=== PATIENT | female | born 1945 | race Caucasian/White ===

== ENCOUNTER 2020-11-03 12:02 | Outpatient (REF) | payer MEDICARE, SELFPAY ==
[2020-11-03 13:42] LABS: Blood Urea Nitrogen 18 mg/dL (9-16); Estimated Glomerular Filt Rate > 60
== END 2020-11-03 12:03 | disposition home or self-care (01) ==
LOC: HO.LAB 12:02
PROVIDERS: PCP Internal Medicine; Visit Provider Psychiatry & Neurology Neurology
DX: I63.9 Cerebral infarction, unspecified (principal)
CPT/HCPCS: 82565; 84520

== ENCOUNTER 2020-11-07 10:09 | Outpatient (REF) | payer MEDICARE, SELFPAY ==
--- NOTE | 2020-11-07 10:20 | CT_ITS ---
CT ANGIOGRAM NECK WITH CONTRAST CT ANGIOGRAM BRAIN WITH CONTRAST CLINICAL INFORMATION: Stroke. COMPARISON: None available. TECHNIQUE: Test bolus sequences followed by intravenous administration 70 mL of Omnipaque 350. Helical imaging was performed in the axial plane from the thoracic inlet to the skull vertex. Delayed postcontrast imaging of the head was also performed. The data was processed at the computer technologist workstation for generation of MIP sequences. Angled MIPs and volume rendered reformatted images were also generated at an offline 3D workstation under concurrent supervision. Stenoses are assessed in accordance with NASCET criteria unless otherwise indicated. This CT examination was performed using dose optimization techniques as appropriate, variously including the following: *Automated exposure control *Adjustment of mA and/or kV according to patient size (this includes techniques or standardized protocols for targeted exams where dose is matched to indication/reason for exam; i.e. 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 There is no intracranial hemorrhage, hydrocephalus, extra-axial surface collection, midline shift, or other herniation pattern. López to white matter differentiation is diffusely maintained without evidence of an evolved acute territorial infarct. The basilar cisterns are preserved. No significant soft tissue abnormality. No acute osseous abnormality. The paranasal sinuses and the mastoid air cells are well aerated.] CERVICAL SOFT TISSUES AND LUNG APICES: [There is multilevel cervical spondylosis. There are no significant soft tissue findings. Imaged upper lungs are clear. NECK CTA: The left common carotid artery arises from the brachiocephalic artery, an anatomic variant. Atherosclerotic calcification results in mild luminal narrowing of the brachiocephalic artery origin. The vertebral arteries are codominant. No significant ostial stenosis is visualized on either side. Both vertebral arteries are widely patent throughout their extracranial cervical course. Both common and internal carotid arteries are normal in course and caliber.] BRAIN CTA: [There is normal opacification of major intracranial arteries. No focal flow-limiting stenosis nor discrete proximal large artery occlusion. No aneurysm. Timing of the contrast bolus allows assessment of the major dural venous sinuses, which all opacify normally] CT/CT angio neck IMPRESSION: No acute intracranial findings. 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 No acute arterial occlusions and no significant arterial stenoses within the head or neck.
--- NOTE | 2020-11-07 10:20 | CT_ITS ---
CT ANGIOGRAM NECK WITH CONTRAST CT ANGIOGRAM BRAIN WITH CONTRAST CLINICAL INFORMATION: Stroke. COMPARISON: None available. TECHNIQUE: Test bolus sequences followed by intravenous administration 70 mL of Omnipaque 350. Helical imaging was performed in the axial plane from the thoracic inlet to the skull vertex. Delayed postcontrast imaging of the head was also performed. The data was processed at the microbiology technologist workstation for generation of MIP sequences. Angled MIPs and volume rendered reformatted images were also generated at an offline 3D workstation under concurrent supervision. Stenoses are assessed in accordance with NASCET criteria unless otherwise indicated. This CT examination was performed using dose optimization techniques as appropriate, variously including the following: *Automated exposure control *Adjustment of mA and/or kV according to patient size (this includes techniques or standardized protocols for targeted exams where dose is matched to indication/reason for exam; i.e. 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 There is no intracranial hemorrhage, hydrocephalus, extra-axial surface collection, midline shift, or other herniation pattern. López to white matter differentiation is diffusely maintained without evidence of an evolved acute territorial infarct. The basilar cisterns are preserved. No significant soft tissue abnormality. No acute osseous abnormality. The paranasal sinuses and the mastoid air cells are well aerated.] CERVICAL SOFT TISSUES AND LUNG APICES: [There is multilevel cervical spondylosis. There are no significant soft tissue findings. Imaged upper lungs are clear. NECK CTA: The left common carotid artery arises from the brachiocephalic artery, an anatomic variant. Atherosclerotic calcification results in mild luminal narrowing of the brachiocephalic artery origin. The vertebral arteries are codominant. No significant ostial stenosis is visualized on either side. Both vertebral arteries are widely patent throughout their extracranial cervical course. Both common and internal carotid arteries are normal in course and caliber.] BRAIN CTA: [There is normal opacification of major intracranial arteries. No focal flow-limiting stenosis nor discrete proximal large artery occlusion. No aneurysm. Timing of the contrast bolus allows assessment of the major dural venous sinuses, which all opacify normally] CT/CT angio head IMPRESSION: No acute intracranial findings. 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 No acute arterial occlusions and no significant arterial stenoses within the head or neck.
[2020-11-07] MEDS: iohexoL 350 MG/ML 100 ML INFUS..BTL 70 ML IV (11:18)
== END 2020-11-07 10:10 | disposition home or self-care (01) ==
LOC: HO.CT 10:09
PROVIDERS: PCP Internal Medicine; Visit Provider Psychiatry & Neurology Neurology
DX: I63.9 Cerebral infarction, unspecified (principal)
CPT/HCPCS: 70496; 70498; Q9967

== ENCOUNTER 2025-02-17 12:07 | Inpatient (IN) | payer MEDICARE, SELFPAY ==
--- NOTE | ~2025-02-17 | CT_ITS ---
EXAMINATION: CT ABDOMEN PELVIS WITH IV CONTRAST HISTORY: constipation. Small bowel obstruction? COMPARISON: There are no prior studies for comparison. TECHNIQUE: CT scan of the abdomen and pelvis was performed following administration of 85 mL Omnipaque 350 using standard departmental protocol. Coronal and sagittal reformatted images were generated and reviewed. Oral contrast material was not administered at the request of the referring physician. This CT exam was performed with one or more of the following dose reduction techniques: automated exposure control, adjustment of the mA and/or kV according to patient size, use of iterative reconstruction technique. DLP: 364 mGy-cm FINDINGS: LOWER CHEST: There is linear scarring at both lung bases. There is no pleural effusion. CARDIOVASCULATURE: The heart is normal in size. There is no pericardial effusion. LIVER: The liver is normal in size and contour. No liver mass is identified. The hepatic and portal veins are patent. GALLBLADDER / BILE DUCTS: The gallbladder is unremarkable. There is no intra or extrahepatic biliary ductal dilatation. SPLEEN: The spleen is normal in size. No focal splenic lesion is identified. PANCREAS: The pancreas is unremarkable in appearance. ADRENAL GLANDS: Within normal limits. KIDNEYS/RETROPERITONEUM: No renal calculi are identified. There is no hydronephrosis. There are subcentimeter hypodensities in the kidneys which likely represent cysts, but are too small to accurately characterize. LYMPH NODES: No abdominal or pelvic lymphadenopathy. VASCULATURE: The abdominal aorta demonstrates atherosclerotic calcification, but is normal in caliber. MESENTERY/PERITONEUM: No free fluid. No masses. There is no free intraperitoneal gas. STOMACH: There is a small hiatal hernia. The remainder of the stomach is collapsed. SMALL BOWEL: The small bowel is normal in caliber. COLON: There is a very large amount of stool in the rectosigmoid colon. Fluid is seen in the ascending, transverse, and descending colon. There is diverticulosis of the sigmoid colon without evidence of diverticulitis. APPENDIX: Normal. URINARY BLADDER/PELVIC ORGANS: The urinary bladder is largely obscured by streak artifact from bilateral total hip arthroplasties. The uterus is partially obscured. The visualized portion is unremarkable in appearance. BONES / SOFT TISSUES: There is severe degenerative disc disease of the spine. CT/CT abdomen pelvis w IV con IMPRESSION: Very large amount of stool in the rectosigmoid colon with fluid in the remaining colon suggestive of an element of colonic obstruction. There is no evidence of small bowel obstruction. Electronically signed by: Charbel Agee MD 02/17/2025 03:17 PM EDT
--- NOTE | ~2025-02-17 | XR_ITS ---
EXAMINATION: XR ABDOMEN KUB CLINICAL INDICATION: rule out colonic obstruction with gastrogfn enema COMPARISON: February 17, 2025. TECHNIQUE: AP view of the abdomen. FINDINGS: Gas throughout the intestine. No air-fluid levels. No intestinal dilatation. There are shadow projects below the rib cage. Bilateral hip arthroplasty prosthesis no fully included. Levoconvex rotoscoliosis and multilevel thoracolumbar spondylosis. Spina bifida occulta S1. XR/XR KUB IMPRESSION: No intestinal obstruction pattern. Electronically signed by: Jared Cosme MD 02/18/2025 09:41 AM EDT
--- NOTE | ~2025-02-17 | XR_ITS ---
EXAMINATION: XR ABDOMEN 1 VIEW (KUB) HISTORY: constipation. Fecal impaction COMPARISON: There are no prior studies for comparison. FINDINGS: Two supine views of the abdomen are submitted. The bowel gas pattern is unremarkable, without evidence of mechanical obstruction. There is a moderate to large amount of stool throughout the colon. There are multiple phleboliths in the pelvis. There are no abnormal soft tissue masses. The patient is status post bilateral total hip arthroplasty. XR/XR KUB IMPRESSION: Moderate to large amount of stool throughout the colon. Electronically signed by: Charbel Agee MD 02/17/2025 01:22 PM EDT
[2025-02-17 12:11] VITALS: BP 141/58; PULSE 64; RESP 19; TEMP 36.3; O2SAT 97; BMI 26.4
--- NOTE | 2025-02-17 12:22 | ED.GENADULT ---
HPI - General Adult General Chief complaint: General Medical Stated complaint: constipation, chronic back pain Time Seen by Provider: 02/17/25 12:14 Source: patient Mode of arrival: ambulatory Limitations: no limitations History of Present Illness ED Provider: Santos Degroot HPI narrative: 79 yold female with no signifiicant pmh and pmh of back surgery presents to the ED for impaction. patient states this morning not able to defecate or urinate this morning. patient states last bowel movement was yesterday morning. Patient states rectum pressure. patient is on oxycodone daily for chronic back pain Related Data Home Medications ?Medication ?Instructions ?Recorded ?Confirmed oxycodone 10 mg tablet 10 mg PO BID 02/17/25 02/17/25 oxycodone 10 mg tablet 10 mg PO DAILY PRN Pain 02/17/25 02/17/25 trazodone 100 mg tablet 200 mg PO BEDTIME 02/17/25 02/17/25 Allergies Allergy/AdvReac Type Severity Reaction Status Date / Time No Known Allergies Allergy Verified 02/17/25 12:15 Review of Systems Review of Systems: rectal pain, constipation Yes all other systems are reviewed and are negative [facility] Social History Social History Smoked in Last 30 Days: No Use of substances other than those prescribed or required for medical reasons: No Advance Directives: No Advance Directives Information Provided: Yes Physical Exam ED Vital Signs: Vital Signs - 24 hr 02/17/25 12:11 02/17/25 15:47 02/17/25 18:38 Temperature 97.3 F 97.9 F 97.8 F Pulse Rate 64 72 72 Respiratory Rate 19 16 16 Blood Pressure 141/58 H 108/76 118/52 L Pulse Oximetry 97 96 95 Oxygen Delivery Method Room Air Room Air Room Air 02/17/25 20:15 02/17/25 22:19 Temperature 98.3 F 98.1 F Pulse Rate 67 74 Respiratory Rate 16 16 Blood Pressure 111/52 L 119/61 Pulse Oximetry 94 95 Oxygen Delivery Method Room Air Room Air BMI result Body Mass Index 26.4 Const General: cooperative, healthy appearing, comfortable, no acute distress, well developed, alert, awake and Physically active Orientation/consciousness: patient oriented x3 HENMT Head: Yes normal to inspection, Yes No palpable skull fracture present, Yes normocephalic and Yes atraumatic Eyes General: appearance normal, both eyes and all related structures Neck Neck: Yes normal visual inspection, Yes full ROM, Yes no lymphadenopathy, Yes no meningeal signs, Yes trachea midline, Yes supple, No anterior neck swelling and No tender Chest Chest palpation & inspection: normal inspection of the chest and normal palpation of entire chest wall Resp Effort & Inspection: normal respiratory effort and able to speak in complete sentences Auscultation: clear to auscultation bilaterally Cardio Jugular venous distension: no JVD Heart sounds: S1 normal heart sound present and S2 normal heart sound present GI Other: Rectal exam: positive for large amount of hard impacted stool at rectum Inspection: Yes normal to inspection Palpation (GI): Soft to palpation, not firm, nontender, no guarding and not rigid General: Yes no CVA tenderness Back/Spine/Pelvis Back: no CVA tenderness and No back tenderness Skin General skin exam: no rashes or lesions noted, elasticity normal and turgor normal Neuro General: patient oriented x3, gait normal, tone normal, moves all extremities, Normal light touch and pain sensation, no meningeal signs, no focal motor deficits, CN's II-XI intact bilaterally and normal sensation to monofilament Extrem General: Yes normal to inspection, Yes full ROM and Yes capillary refill normal Psych Appearance: grossly normal, well kempt and not disheveled Course Reevaluation(s) Reevaluation #1: the patient was yet to be admitted to the hospital, there appears to be miscommunication between the prior hospitalist, and the provider caring for this patient is; Santos Degroot, and the hospitalist that he had reached out to earlier was Dr. Power. Regardless, I reached out to Dr. Mcduffie, he will accept the patient, it was documented in Mr. Degroot's chart that both GI and surgery were consulted, both parties are aware; Dr. Goldstein and Dr. Reeves. We are filing a sec 12. Medications Administered Discontinued Medications Generic Name Dose Route Start Last Admin Trade Name Freq PRN Reason Stop Dose Admin Acetaminophen 975 mg 02/17/25 21:49 02/17/25 22:15 Acetaminophen 325 Mg Tablet PO 02/17/25 21:50 975 mg ONCE ONE Administration Iohexol 100 ml 02/17/25 14:31 02/17/25 14:31 Iohexol 350 Mg/Ml 100 Ml Infus..Btl IV 02/17/25 14:32 85 ml ONCE ONE Administration Ketorolac Tromethamine 30 mg 02/17/25 13:07 02/17/25 13:28 Ketorolac Tromethamine 30 Mg/Ml Vial IVPUSH 02/17/25 13:08 30 mg ONCE ONE Administration Mineral Oil 133 ml 02/17/25 12:39 02/17/25 14:11 Mineral Oil Enema 133 Ml Enema MO 02/17/25 12:40 133 ml ONCE ONE Administration Medical Decision Making Medical Decision Making MDM Narrative: 79 yold female with seem like physical exam fecal impaction. Large amount of stool hard in the rectum. Patient is in discomfort. Tried to disimpact patient has small number of poop came out but patient not able to tolerate. Patient can not do more than 1 finger. Stool is hard and large Fleet enema placed. Patient would like a break we will go back to the room to continue disimpaction with mineral oil enema. Bladder scan is 300 due to stool fecal impactoin. 1:52pm: KUB shows moderate to large amount of stool throughout the abdomen. Bladder scan now 700 most likely due to constipation we will do strict calf to relieve patient. 2:20pm: 2nd attempt at fecal disimpaction. Patient not able to tolerate to fingers. Patient not able to tolerate much of any finger on even 1. Stool is soft patient thinks she pushed a little bit out. Mineral oil Fleet given. Due to age we will do CT scan ordered to make sure there is no small bowel obstructoin. 4:29pm: CT scan shows large rectal sigmoid colon obstruction with colonic obstruction with fluid buildup. Once again patient was not able to tolerate fecal impaction and also enema which was attempted twice. Case was discussed with Dr. Goldstein recommend patient be admitted to Medicine with surgery and GI consult. 5:00pm: Patient now stating she is suicidal and should take her own life. Patient seems emotionally labile. Due to this care team consult placed. Hospitalist made aware. Dr. Reeves was made aware of patient's colonic obstruction. Differential Diagnosis Differential Diagnoses: The differential diagnosis associated with the presentation includes (SB0) Admission/Observation Consideration of admission/observation: Escalation of care including admission/observation considered Consult Healthcare Provider Management of the patient was discussed with: Hospitalist (Dr. Power) and Finance Associate (Dr. Goldstein of Surgery and Dr. Reeves of GI) Lab Data 02/17/25 13:57 02/17/25 13:57 Labs: Lab Results 02/17/25 02/17/25 Range/Units 13:57 14:07 WBC 11.6 H (4.8-10.8) X10*3/uL RBC 4.26 (4.20-5.50) X10*6/uL Hgb 12.6 (12.0-16.0) g/dl Hct 38.3 (37.0-47.0) % MCV 89.9 (80.0-98.0) fL MCH 29.6 (27.0-33.0) pg MCHC 32.9 (31.0-35.0) g/dl RDW 14.2 (11.0-16.0) % Plt Count 158 L (160-400) X10*3/uL MPV 11.3 (9.4-12.3) fL Immature Gran % (Auto) 0.3 (0.0-0.4) % Neut % (Auto) 83.6 H (45-73) % Lymph % (Auto) 10.8 L (20-40) % Grand % (Auto) 4.9 (2-11) % Eos % (Auto) 0.1 (0-4) % Baso % (Auto) 0.3 (0-2) % Lymph # (Auto) 1.3 (1.2-4.9) X10*3/uL [place] # (Auto) 0.6 (0.1-1.2) X10*3/uL Eos # (Auto) 0.0 (0.0-0.4) X10*3/uL Baso # (Auto) 0.0 (0.0-0.2) X10*3/uL Abs Immat Gran (auto) 0.04 H (0.00-0.03) X10*3/uL Absolute Neuts (auto) 9.7 H (2.0-8.3) x10*3/uL Absolute Nucleated RBC 0.000 (0.0-0.012) X10*3/uL Nucleated RBC % (auto) 0.0 (0.0-0.2) /100WBC Sodium 140 (135-145) mmol/L Potassium 3.8 (3.3-5.1) mmol/L Chloride 110 H (96-108) mmol/L Carbon Dioxide 24 (22-29) mmol/L Anion Gap 10 L (12-20) BUN 13 (9-16) mg/dL Creatinine 0.79 (0.5-1.4) mg/dL Estim Creat Clear Calc 49.2 Estimated GFR > 60 Random Glucose 106 (60-115) mg/dL Calcium 9.5 (8.4-10.2) mg/dL Total Bilirubin 0.8 (0.0-1.0) mg/dL AST 24 (5-31) U/L ALT 7 (0-31) U/L Alkaline Phosphatase 102 (39-117) U/L Total Protein 6.1 L (6.5-8.0) g/dL Albumin 3.9 (3.5-5.0) g/dL Urine Color Yellow Urine Appearance Clear Urine pH 7.5 (5.0-9.0) Ur Specific [place] <= 1.005 (1.005-1.025) Urine Protein Negative (Neg-Trace) mg/dL Urine Glucose (UA) Negative (Negative) mg/dL Urine Ketones Trace (Negative) mg/dL Urine Blood Negative (Negative) Urine Nitrite Negative (Negative) Ur Leukocyte Esterase Negative (Negative) Discharge Plan Discharge Clinical Impression: Colonic obstruction, Suicidal ideation Patient Disposition: Admitted As Inpatient
[2025-02-17] MEDS: Ketorolac Tromethamine 30 MG/ML VIAL IVPUSH (13:28)
[2025-02-17 14:02] LABS: MANUAL DIFF FLAG NO
[2025-02-17 14:04] LABS: Basophils Percent Auto 0.3 % (0-2); Eosinophils Percent Auto 0.1 % (0-4); Hematocrit 38.3 % (37.0-47.0); Hemoglobin 12.6 g/dl (12.0-16.0); Imm Gran Abs Auto 0.04 X10*3/uL (0.00-0.03); Imm Gran Pct Auto 0.3 % (0.0-0.4); Lymphocytes Absolute Auto 1.3 X10*3/uL (1.2-4.9); Lymphocytes Percent Auto 10.8 % (20-40); Mean Corpuscular HGB Conc 32.9 g/dl (31.0-35.0); Mean Corpuscular Hemoglobin 29.6 pg (27.0-33.0); Mean Corpuscular Volume 89.9 fL (80.0-98.0); Mean Platelet Volume 11.3 fL (9.4-12.3); Monocytes Absolute Auto 0.6 X10*3/uL (0.1-1.2); Monocytes Percent Auto 4.9 % (2-11); Neutrophils Absolute Auto 9.7 x10*3/uL (2.0-8.3); Neutrophils Percent Auto 83.6 % (45-73); Platelet Count 158 X10*3/uL (160-400); Red Blood Count 4.26 X10*6/uL (4.20-5.50); Red Cell Distribution Width 14.2 % (11.0-16.0); White Blood Count 11.6 X10*3/uL (4.8-10.8)
[2025-02-17] MEDS: Mineral OiL enema 133 ML ENEMA PR (14:11)
[2025-02-17 14:17] LABS: Alanine Aminotransferase 7 U/L (0-31); Albumin Level 3.9 g/dL (3.5-5.0); Alkaline Phosphatase 102 U/L (39-117); Anion Gap 10 (12-20); Aspartate Amino Transferase 24 U/L (5-31); Bilirubin Total 0.8 mg/dL (0.0-1.0); Blood Urea Nitrogen 13 mg/dL (9-16); Calcium 9.5 mg/dL (8.4-10.2); Carbon Dioxide 24 mmol/L (22-29); Chloride 110 mmol/L (96-108); Creatinine Clr Calc Pharmacy 49.2; Estimated Glomerular Filt Rate > 60; Glucose Random 106 mg/dL (60-115); Potassium 3.8 mmol/L (3.3-5.1); Sodium 140 mmol/L (135-145); Total Protein 6.1 g/dL (6.5-8.0)
[2025-02-17 14:26] LABS: Appearance Urine Clear; Color Urine Yellow; Glucose Urine UA Negative (Negative); Leukocyte Esterase Urine Negative (Negative); Nitrite Urine Negative (Negative); PH 7.5 (5.0-9.0); Specific Gravity - Urine <= 1.005 (1.005-1.025); Urine Blood Negative (Negative); Urine Ketones Trace mg/dL (Negative); Urine Protein Negative (Neg-Trace)
[2025-02-17] MEDS: iohexoL 350 MG/ML 100 ML INFUS..BTL IV (14:31)
[2025-02-17 15:47] VITALS: BP 108/76; PULSE 72; RESP 16; TEMP 36.6; O2SAT 96
--- NOTE | 2025-02-17 17:19 | PC.NURSE ---
Pt made statements to tech about trying to kill herself in September and wishing she did it. Pt very emotional, +emotional liable. Crying and upset then having periods of laughing. This RN spoke to pt, pt denies SI or HI at this time, but does request to talk to someone about her mental health due to it not being well since September and getting worse. Pt reporting she has been more confused, not feeling herself. At this time, pt changed over into safety clothing, 1:1 sitter at bedside, provider aware and care team order placed.
--- NOTE | 2025-02-17 17:27 | PC.NURSE ---
Late entry: Pt presented from home via EMS for constipation X24 hours and unable to urinate since yesterday as well. Pt has hx of back issues, takes oxy 10mg TID for pain for years, reports no issues with constipation in past. Reporting pain and pressure to rectum area. Pt was disimpacted by provider, enemas X2 given with some positive effect. Pt bladder scanned and found to be >700 mL, straight cath with approx 700 mL of output. Pt on purewick now. Alert and oriented, breathing even and unlabored. IV in left AC 20G
--- NOTE | 2025-02-17 17:31 | PC.NURSE ---
Pt is poss admit and surgicial consult for poss colonic obstruction. NPO at this time
--- NOTE | 2025-02-17 18:30 | PC.NURSE ---
Pt reporting she is unable to urinate again. Bladder scan shows >700 mL again. Provider gave order to do another straight cath at this time
[2025-02-17 18:38] VITALS: BP 118/52; PULSE 72; RESP 16; TEMP 36.6; O2SAT 95
--- NOTE | 2025-02-17 18:38 | PC.NURSE ---
Second straight cath urine output 700 mL.
--- NOTE | 2025-02-17 19:01 | PHA.MEDREC ---
Addendum entered by Martin Patel [facility] 02/17/25 19:29: MED REC CHECKED BY [facility] Original Note: Pharmacy Consult ? Medication Reconciliation Pharmacy has completed the medication reconciliation. Spoke to patient to confirm med list. Patient states she is not taking Gabapentin 100 mg, Ondansertron 4 mg, and Valacyclovir 2,000mg. Patient states she takes Oxyconode 10 mg Bid and 10 mg prn.
[2025-02-17 20:15] VITALS: BP 111/52; PULSE 67; RESP 16; TEMP 36.8; O2SAT 94
--- NOTE | 2025-02-17 20:26 | PC.NURSE ---
this rn assumed care of pt @ 1900 charge operator and covering cielo aware of unknown pending disposition. pt continues to await care team consult pt denies new needs at this time 1:[address]
[2025-02-17] MEDS: Acetaminophen 325 MG TABLET 975 MG PO (22:15)
[2025-02-17 22:19] VITALS: BP 119/61; PULSE 74; RESP 16; TEMP 36.7; O2SAT 95
--- NOTE | 2025-02-17 23:15 | MHC.EDTECH ---
this tech assumed care of this pt @ 3126 from Edd (rail manager)
--- NOTE | 2025-02-17 23:18 | P.HPHOSP_ITS ---
History of Present Illness Date of Service: 02/17/25 Chief Complaint: Constipation 79-year-old female with a past medical history of chronic back pain status post surgery presented to the hospital today with a chief complaint of abdominal discomfort/constipation. Patient reports that she is having difficulty in having a bowel movement since morning. Has been having mild lower abdominal discomfort. Denies any nausea or vomiting. Last bowel movement was about a day ago. Denies any chest pain or palpitations. Denies any urinary frequency urgency or dysuria. Review of all other systems is negative except mentioned above ER course: Per ER team, patient abdominal exam was benign; CT abdomen pelvis showed severe constipation with colonic obstruction. ER patient tried manual disimpaction couple times but no success. Patient was given enema 2 times. Discussed with General surgery and Gastroenterology who suggested admission to the medicine service and will be evaluated in the morning. [facility] Social History Smoked in Last 30 Days: No Use of substances other than those prescribed or required for medical reasons: No Advance Directives: No Advance Directives Information Provided: Yes Meds Allergies Allergy/AdvReac Type Severity Reaction Status Date / Time No Known Allergies Allergy Verified 02/17/25 12:15 Active Medications: Current Medications Acetaminophen (Acetaminophen 325 Mg Tablet) 650 mg PO Q6H PRN PRN Reason: Pain, Mild 1-3,fever,headache Calcium Carbonate (Calcium Carbonate 750 Mg Tab.Chew) 750 mg PO Q4H PRN PRN Reason: Heartburn Docusate Sodium (Docusate Sodium 100 Mg Capsule) 100 mg PO BID [facility] Heparin Sodium (Porcine) (Heparin Sodium,Porcine 5,000 Unit/Ml Vial) 5,000 unit SUBCUT Q8H [facility] Dextrose/Sodium Chloride (D51/2ns) 1,000 mls @ 100 mls/hr IVCONT .Q10H [place] Magnesium Hydroxide (Milk Of Magnesia 30 Ml Oral.Susp) 30 ml PO DAILY PRN PRN Reason: Constipation Melatonin (Melatonin 3 Mg Tablet) 6 mg PO BEDTIME PRN PRN Reason: Insomnia Polyethylene Glycol (Polyethylene Glycol 3350 17 Gm Powd.Pack) 17 gm PO DAILY PRN PRN Reason: Constipation Senna (Sennosides 8.6 Mg Tablet) 17.2 mg PO BEDTIME [facility] Sodium Chloride (0.9 % Sodium Chloride Flush 3 Ml Syringe) 3 ml IVFLUSH QSHIFT [facility] Home Medications ?Medication ?Instructions ?Recorded ?Confirmed ?Last Taken ?Type oxycodone 10 mg tablet 10 mg PO BID 02/17/25 02/17/25 02/16/25 History oxycodone 10 mg tablet 10 mg PO DAILY PRN Pain 02/17/25 02/17/25 Unknown History trazodone 100 mg tablet 200 mg PO BEDTIME 02/17/25 02/17/25 02/16/25 History Physical Exam 2 Vital Signs and Narrative: Vital Signs: Last Vital Signs Temp 98.1 F 02/17/25 22:19 Pulse 74 02/17/25 22:19 Resp 16 02/17/25 22:19 BP 119/61 02/17/25 22:19 Pulse Ox 95 02/17/25 22:19 O2 Del Method Room Air 02/17/25 22:19 BMI result Body Mass Index 26.4 Gen: Appears be in no acute distress HEENT: NCAT, Moist mucosa. Pulmonary: Vesicular breath sounds, fair air entry CVS: Normal S1-S2 Abdomen: BS+, Soft, Nontender Extremities: Warm well perfused Neuro: Alert and awake. Results Labs 02/17/25 13:57 02/17/25 13:57 Labs: Laboratory Results - last 24 hr 02/17/25 02/17/25 13:57 14:07 MCV 89.9 MCH 29.6 MCHC 32.9 RDW 14.2 Plt Count 158 L MPV 11.3 Immature Gran % (Auto) 0.3 Neut % (Auto) 83.6 H Lymph % (Auto) 10.8 L [place] % (Auto) 4.9 Eos % (Auto) 0.1 Baso % (Auto) 0.3 Lymph # (Auto) 1.3 [place] # (Auto) 0.6 Eos # (Auto) 0.0 Baso # (Auto) 0.0 Abs Immat Gran (auto) 0.04 H Absolute Neuts (auto) 9.7 H Absolute Nucleated RBC 0.000 Nucleated RBC % (auto) 0.0 Anion Gap 10 L Estim Creat Clear Calc 49.2 Estimated GFR > 60 Random Glucose 106 Calcium 9.5 Total Bilirubin 0.8 AST 24 ALT 7 Alkaline Phosphatase 102 Total Protein 6.1 L Albumin 3.9 Urine Color Yellow Urine Appearance Clear Urine pH 7.5 Ur Specific [place] <= 1.005 Urine Protein Negative Urine Glucose (UA) Negative Urine Ketones Trace Urine Blood Negative Urine Nitrite Negative Ur Leukocyte Esterase Negative Imaging Radiologist's Impressions: Impressions KUB X-Ray 02/17/25 13:04 IMPRESSION: Moderate to large amount of stool throughout the colon. Electronically signed by: Charbel Agee MD 02/17/2025 01:22 PM EDT RP Abdomen/Pelvis CT 02/17/25 14:30 IMPRESSION: Very large amount of stool in the rectosigmoid colon with fluid in the remaining colon suggestive of an element of colonic obstruction. There is no evidence of small bowel obstruction. Electronically signed by: Charbel Agee MD 02/17/2025 03:17 PM EDT RP Assessment and Plan (1) Constipation: Qualifiers: Constipation type: unspecified constipation type Qualified Code(s): K 59.00 - Constipation, unspecified Status: Acute Plan 79-year-old female with a past medical history of chronic back pain status post surgery presented to the hospital today with a chief complaint of abdominal discomfort/constipation. Constipation: Colonic obstruction: CT abdomen pelvis showed severe constipation with colonic obstruction. Failed manual disimpaction attempts x2 in the ER Given enema x2 in the ER Bowel regimen Gentle IV fluids Gastroenterology and general surgery was notified Supportive care Advanced diet as tolerated Suicidal ideation: While in the ER patient expressed suicide ideation. Patient was placed on section 12 One 2 on observation Psychiatric consult DVT prophylaxis: SubQ heparin Code status: Full code Quality Stroke Does the patient have a stroke diagnosis?: No VTE Prior VTE?: No VTE Risk Level:: Medical - moderate - high VTE Device Contraindication: N/A - Device Ordered VTE Drug Contraindication: N/A - Med Ordered
--- NOTE | 2025-02-17 23:30 | PC.NURSE ---
late entry-pt expressed multiple times frustration, confusion, and dissatisfaction with management of admission. charge master specialist and jeromy cielo to bedside to reiterate and explain plan of care. pt required frequent explanation for current disposition and plan of care
[2025-02-18] MEDS: Dextrose 5 % and 0.45 % NaCl 1,000 ML 100 ML IVCONT ×2 (00:03→11:04)
--- NOTE | 2025-02-18 00:07 | PC.NURSE ---
pt refused herparin injection pt educated on importance of medication
--- NOTE | 2025-02-18 00:08 | PC.NURSE ---
ivf infusing unable to scan bar code ivf confirmed medication with additional rn
[2025-02-18 01:26] VITALS: BP 111/68; PULSE 65; RESP 15; TEMP 36.6; O2SAT 95
[2025-02-18] MEDS: traZODone HCL 100 MG TABLET 200 MG PO ×2 (02:44→20:06)
--- NOTE | 2025-02-18 03:33 | PC.NURSE ---
per cupola charger pt belongings need to be placed in [facility] due to pt SI statements. belongings list completed belongings placed on shelf 1 contains two bags and 1 cane note made in [facility] log book
[2025-02-18 06:26] VITALS: BP 113/54; PULSE 71; RESP 16; TEMP 36.6; O2SAT 97
--- NOTE | 2025-02-18 06:43 | MHC.EDTECH ---
at this time this tech assisted the pt off of the commode, pt had a small sized liquid stool, pt stated she urinated prior to having BM. bladder scanned post BM and pt still had a remaining 426 mL left after using commode, RN notified
--- NOTE | 2025-02-18 07:05 | PC.NURSE ---
bladder scan performed by physical medicine specialist 620ml on scan. pt able to use bedside commode bladder scan repeated 426ml remained in bladder at this time. dr easton made aware per md plan of care is for straight cath. oncoming sangeeta huffman made aware tiger message forwarded to oncrayna rutherford
[2025-02-18] MEDS: Docusate Sodium 100 MG CAPSULE PO ×2 (07:18→20:06)
[2025-02-18] MEDS: Heparin Sodium,Porcine 5,000 UNIT/ML VIAL 5000 UNIT SUBCUT ×3 (07:18→22:56)
--- NOTE | 2025-02-18 07:34 | PM.GICN ---
History of Present Illness Data of Consult Service Date: 02/18/25 Requesting physician: Edis Mcduffie Primary Care Provider: Aniceto Umana MD [facility] Reason for consult: colonic obstruction 79 YF with chronic back pain status post surgery seen at [facility] ED on 02/17/25 with abdominal discomfort/constipation. Patient reports that she is having difficulty in having a bowel movement since morning. Has been having mild lower abdominal discomfort. Pt states she lost track of her bowel movements - last BM was a week ago (notes she is having trouble with her memory) She reports she eats fruits and vegetables and drinks 2-3 bottles of water daily. Takes OTC laxatives/stool softeners prn (unable to recall nam of medication) Denies any nausea or vomiting, chest pain or palpitations. Denies any urinary frequency urgency or dysuria. Pt reports she has been passing bits and pieces of stool overnight after getting the enemas Also had urinary retention and reports 400 cc of urine was removed by cathetrization and she feels a little more comfortable this am. Pt reports she never had a colonscopy in the past (a little unsure) Patient denies smoking and takes alcohol very rarely. She is retired and lives with her and her dog. Pt reports she was born at 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 Patient was given fleet enemas x 2. Pt was discussed with General surgery who advised admission to Medicine service. Suicidal ideation: While in the ER patient expressed suicide ideation. Patient was placed on section 12 with a sitter 02/17/[address] SCAN SHOWED: Very large amount of stool in the rectosigmoid colon with fluid in the remaining colon suggestive of an element of colonic obstruction. There is no evidence of small bowel obstruction. Review of Systems Review of Systems: rectal pain, constipation Yes all other systems are reviewed and are negative Neurologic: Reports confusion Psychiatric: Psychiatric: Reports confusion PMFSH Social History Social History Household Members: Spouse Housing: Other Housing Other:: mobile home Do you presently have visiting nurse or other home services: No Patient Tobacco Use Status: Never used Tobacco service: No Meds Allergies Allergy/AdvReac Type Severity Reaction Status Date / Time No Known Allergies Allergy Verified 02/17/25 12:15 Active Medications: Current Medications Acetaminophen (Acetaminophen 325 Mg Tablet) 650 mg PO Q6H PRN PRN Reason: Pain, Mild 1-3,fever,headache Calcium Carbonate (Calcium Carbonate 750 Mg Tab.Chew) 750 mg PO Q4H PRN PRN Reason: Heartburn Docusate Sodium (Docusate Sodium 100 Mg Capsule) 100 mg PO BID [facility] Last Admin: 02/18/25 07:18 Dose: 100 mg Heparin Sodium (Porcine) (Heparin Sodium,Porcine 5,000 Unit/Ml Vial) 5,000 unit SUBCUT Q8H [facility] Last Admin: 02/18/25 07:18 Dose: 5,000 unit Dextrose/Sodium Chloride (D51/2ns) 1,000 mls @ 100 mls/hr IVCONT .Q10H [facility] Last Admin: 02/18/25 00:03 Dose: 100 mls/hr Magnesium Hydroxide (Milk Of Magnesia 30 Ml Oral.Susp) 30 ml PO DAILY PRN PRN Reason: Constipation Melatonin (Melatonin 3 Mg Tablet) 6 mg PO BEDTIME PRN PRN Reason: Insomnia Polyethylene Glycol (Polyethylene Glycol 3350 17 Gm Powd.Pack) 17 gm PO DAILY PRN PRN Reason: Constipation Senna (Sennosides 8.6 Mg Tablet) 17.2 mg PO BEDTIME [facility] Sodium Chloride (0.9 % Sodium Chloride Flush 3 Ml Syringe) 3 ml IVFLUSH QSHIFT [facility] Last Admin: 02/18/25 07:19 Dose: Not Given Trazodone HCl (Trazodone Hcl 100 Mg Tablet) 200 mg PO BEDTIME [facility] Last Admin: 02/18/25 02:44 Dose: 200 mg Home Medications ?Medication ?Instructions ?Recorded ?Confirmed ?Last Taken ?Type oxycodone 10 mg tablet 10 mg PO BID 02/17/25 02/17/25 02/16/25 History oxycodone 10 mg tablet 10 mg PO DAILY PRN Pain 02/17/25 02/17/25 Unknown History trazodone 100 mg tablet 200 mg PO BEDTIME 02/17/25 02/17/25 02/16/25 History Physical Exam Vital Signs: Vital Signs: Last Vital Signs Temp 97.9 F 02/18/25 06:26 Pulse 71 02/18/25 06:26 Resp 16 02/18/25 06:26 BP 113/54 L 02/18/25 06:26 Pulse Ox 97 02/18/25 06:26 O2 Del Method Room Air 02/18/25 06:26 BMI result Body Mass Index 26.4 Const: General: no acute distress and confusion Nutritional Appearance: overweight Orientation/consciousness: confusion Limitations: no limitations HEENT: Head: Yes normal to inspection Ears: hearing grossly normal bilaterally Mouth: Normal oral and palatal mucosa present Eyes: Sclerae: sclerae normal Pupils: Equal, round and reactive pupils present Neck: Neck: Yes normal visual inspection Chest: Chest palpation & inspection: normal inspection of the chest Resp: Effort & Inspection: normal respiratory effort Auscultation: clear to auscultation bilaterally Cardio: Palpation: normal PMI Rate: regular rate Rhythm: regular rhythm Heart sounds: S1 normal heart sound present, S2 normal heart sound present and no murmurs GI: Palpation (GI): Soft to palpation, nontender and No hepatosplenomegaly present Auscultation: normal bowel sounds Rectal Exam - Female: deferred Skin: General skin exam: no rashes or lesions noted Neuro: General: gait normal, moves all extremities and confusion Cranial nerves: Yes Equal, round and reactive pupils present Psych: Appearance: grossly normal Mental Status: mental status grossly normal Results Labs 02/18/25 08:58 02/18/25 08:58 Labs: Short CBC 02/17/25 Range/Units 13:57 WBC 11.6 H (4.8-10.8) X10*3/uL Hgb 12.6 (12.0-16.0) g/dl Hct 38.3 (37.0-47.0) % Plt Count 158 L (160-400) X10*3/uL BMP 02/17/25 13:57 Sodium 140 Potassium 3.8 Chloride 110 H Carbon Dioxide 24 BUN 13 Creatinine 0.79 Calcium 9.5 Liver Function 02/17/25 Range/Units 13:57 Total Bilirubin 0.8 (0.0-1.0) mg/dL AST 24 (5-31) U/L ALT 7 (0-31) U/L Alkaline Phosphatase 102 (39-117) U/L Albumin 3.9 (3.5-5.0) g/dL Urine 02/17/25 Range/Units 14:07 Urine Color Yellow Urine Appearance Clear Urine pH 7.5 (5.0-9.0) Ur Specific [place] <= 1.005 (1.005-1.025) Urine Protein Negative (Neg-Trace) mg/dL Urine Glucose (UA) Negative (Negative) mg/dL Assessment and Plan (1) Fecal impaction: Status: Acute (2) Constipation: Qualifiers: Constipation type: unspecified constipation type Qualified Code(s): K59.00 - Constipation, unspecified Status: Acute Plan 79 YF with chronic back pain status post surgery admitted to [facility] on 02/17/25 with abdominal discomfort/obstipation and fecal impaction. Pt reports she has been passing bits and pieces of stool overnight after getting the enemas Also had urinary retention and reports 400 cc of urine was removed by cathetrization and she feels a little more comfortable this am. Pt reports she never had a colonscopy in the past (a little unsure) Constipation with impaction likely related to use of pain medication and less likely colon obstruction RECOMMENDATIONS: 1. Agree with stool softeners, Milk of Magnesia and Senna 2. Gastrograffin enema to rule out distal obstruction - can also have a laxative effect. 3. Advise Miralax one to two times daily at discharge 4. If she continues to have constipation, she can be scheduled for an outpatient colonoscopy for further evaluation ADDENDUM: Manual disimpaction was performed by Dr Champion with good results. Procedures Date of Service Date of Service: 02/18/25
--- NOTE | 2025-02-18 07:38 | PC.NURSE ---
Alert and oriented to person and place. Patient with intermittent confusion. Incontinent of loose stool, cleaned, turned and repositioned. Straight cathed for 450mls.
--- NOTE | 2025-02-18 09:02 | PM.CNGS ---
History of Present Illness Consult details Consult date: 02/18/25 Narrative: Patient was a 79-year-old female with collection of medical problems including dementia , and chronic back pain, who is a very poor historian. Presents here because of constipation. Very unreliable history but she does not think she has moved her bowels for last several days time. She can not give a history of whether she has had colonoscopy in the past. She does not know if she has had stool issues of bright red blood or melena or stool caliber. Chart was reviewed and patient evaluated. Patient was on a variety of opioid narcotics which I am sure contributing to her constipation.. Patient had CT scan demonstrating tremendous stool burden. No other gross intra abdominal pathology demonstrated. Patient had attempted fecal disimpaction by ER with limited results. PMFSH Social History Social History Smoked in Last 30 Days: No Use of substances other than those prescribed or required for medical reasons: No Advance Directives: No Advance Directives Information Provided: Yes Meds Allergies Allergy/AdvReac Type Severity Reaction Status Date / Time No Known Allergies Allergy Verified 02/17/25 12:15 Active Medications: Current Medications Acetaminophen (Acetaminophen 325 Mg Tablet) 650 mg PO Q6H PRN PRN Reason: Pain, Mild 1-3,fever,headache Calcium Carbonate (Calcium Carbonate 750 Mg Tab.Chew) 750 mg PO Q4H PRN PRN Reason: Heartburn Docusate Sodium (Docusate Sodium 100 Mg Capsule) 100 mg PO BID [facility] Last Admin: 02/18/25 07:18 Dose: 100 mg Heparin Sodium (Porcine) (Heparin Sodium,Porcine 5,000 Unit/Ml Vial) 5,000 unit SUBCUT Q8H [facility] Last Admin: 02/18/25 07:18 Dose: 5,000 unit Dextrose/Sodium Chloride (D51/2ns) 1,000 mls @ 100 mls/hr IVCONT .Q10H [facility] Last Admin: 02/18/25 00:03 Dose: 100 mls/hr Magnesium Hydroxide (Milk Of Magnesia 30 Ml Oral.Susp) 30 ml PO DAILY PRN PRN Reason: Constipation Melatonin (Melatonin 3 Mg Tablet) 6 mg PO BEDTIME PRN PRN Reason: Insomnia Mineral Oil (Mineral Oil Enema 133 Ml Enema) 133 ml IN Q1H PRN PRN Reason: constipation Polyethylene Glycol (Polyethylene Glycol 3350 17 Gm Powd.Pack) 17 gm PO DAILY PRN PRN Reason: Constipation Senna (Sennosides 8.6 Mg Tablet) 17.2 mg PO BEDTIME [facility] Sodium Chloride (0.9 % Sodium Chloride Flush 3 Ml Syringe) 3 ml IVFLUSH QSHIFT [facility] Last Admin: 02/18/25 07:19 Dose: Not Given Trazodone HCl (Trazodone Hcl 100 Mg Tablet) 200 mg PO BEDTIME [facility] Last Admin: 02/18/25 02:44 Dose: 200 mg Home Medications ?Medication ?Instructions ?Recorded ?Confirmed ?Last Taken ?Type oxycodone 10 mg tablet 10 mg PO BID 02/17/25 02/17/25 02/16/25 History oxycodone 10 mg tablet 10 mg PO DAILY PRN Pain 02/17/25 02/17/25 Unknown History trazodone 100 mg tablet 200 mg PO BEDTIME 02/17/25 02/17/25 02/16/25 History Physical Exam Vital Signs: Vital Signs: Last Vital Signs Temp 97.9 F 02/18/25 06:26 Pulse 71 02/18/25 06:26 Resp 16 02/18/25 06:26 BP 113/54 L 02/18/25 06:26 Pulse Ox 97 02/18/25 06:26 O2 Del Method Room Air 02/18/25 06:26 BMI result Body Mass Index 26.4 Const: Other: Pleasant female somewhat confused and confabulating. GI: Other: Abdomen moderately corpulent, soft, benign. No evidence of any guarding, rebound, or rigidity. Results Labs 02/17/25 13:57 02/17/25 13:57 Labs: Abnormal lab results 02/17/25 Range/Units 13:57 WBC 11.6 H (4.8-10.8) X10*3/uL Plt Count 158 L (160-400) X10*3/uL Neut % (Auto) 83.6 H (45-73) % Lymph % (Auto) 10.8 L (20-40) % Abs Immat Gran (auto) 0.04 H (0.00-0.03) X10*3/uL Absolute Neuts (auto) 9.7 H (2.0-8.3) x10*3/uL Chloride 110 H (96-108) mmol/L Anion Gap 10 L (12-20) Total Protein 6.1 L (6.5-8.0) g/dL Short CBC 02/17/25 Range/Units 13:57 WBC 11.6 H (4.8-10.8) X10*3/uL Hgb 12.6 (12.0-16.0) g/dl Hct 38.3 (37.0-47.0) % Plt Count 158 L (160-400) X10*3/uL BMP 02/17/25 13:57 Sodium 140 Potassium 3.8 Chloride 110 H Carbon Dioxide 24 BUN 13 Creatinine 0.79 Calcium 9.5 Liver Function 02/17/25 Range/Units 13:57 Total Bilirubin 0.8 (0.0-1.0) mg/dL AST 24 (5-31) U/L ALT 7 (0-31) U/L Alkaline Phosphatase 102 (39-117) U/L Albumin 3.9 (3.5-5.0) g/dL Urine 02/17/25 Range/Units 14:07 Urine Color Yellow Urine Appearance Clear Urine pH 7.5 (5.0-9.0) Ur Specific [place] <= 1.005 (1.005-1.025) Urine Protein Negative (Neg-Trace) mg/dL Urine Glucose (UA) Negative (Negative) mg/dL All other labs normal. Assessment and Plan (1) Constipation: Qualifiers: Constipation type: unspecified constipation type Qualified Code(s): K59.00 - Constipation, unspecified Status: Acute Plan Diagnosis of significant constipation. At present no acute surgical intervention required. Purgatives/enema per hospitalist and awaiting GI consult. Procedures Date of Service Date of Service: 02/18/25
--- NOTE | 2025-02-18 09:04 | P.PNIM_ITS ---
Subjective Subjective Date of Service: 02/18/25 Interval History: small hard bms Physical Exam 2 Vital Signs: Vital Signs: Last Vital Signs Temp 97.9 F 02/18/25 06:26 Pulse 71 02/18/25 06:26 Resp 16 02/18/25 06:26 BP 113/54 L 02/18/25 06:26 Pulse Ox 97 02/18/25 06:26 O2 Del Method Room Air 02/18/25 06:26 BMI result Body Mass Index 26.4 General: AO X 3, no acute distress Resp: CTA bilateral, no accessory muscles used CVS: S1,S2,RRR GI: soft, non tender, non distended Neuro: motor grossly intact, alert Objective Data Active Medications Acetaminophen (Acetaminophen 325 Mg Tablet) 650 mg PO Q6H PRN PRN Reason: Pain, Mild 1-3,fever,headache Calcium Carbonate (Calcium Carbonate 750 Mg Tab.Chew) 750 mg PO Q4H PRN PRN Reason: Heartburn Docusate Sodium (Docusate Sodium 100 Mg Capsule) 100 mg PO BID [facility] Last Admin: 02/18/25 07:18 Dose: 100 mg Documented By: BLAINE Heparin Sodium (Porcine) (Heparin Sodium,Porcine 5,000 Unit/Ml Vial) 5,000 unit SUBCUT Q8H [facility] Last Admin: 02/18/25 07:18 Dose: 5,000 unit Documented By: BLAINE Dextrose/Sodium Chloride (D51/2ns) 1,000 mls @ 100 mls/hr IVCONT .Q10H [facility] Last Admin: 02/18/25 00:03 Dose: 100 mls/hr Documented By: ZULY Magnesium Hydroxide (Milk Of Magnesia 30 Ml Oral.Susp) 30 ml PO DAILY PRN PRN Reason: Constipation Melatonin (Melatonin 3 Mg Tablet) 6 mg PO BEDTIME PRN PRN Reason: Insomnia Mineral Oil (Mineral Oil Enema 133 Ml Enema) 133 ml [place] Q1H PRN PRN Reason: constipation Polyethylene Glycol (Polyethylene Glycol 3350 17 Gm Powd.Pack) 17 gm PO DAILY PRN PRN Reason: Constipation Senna (Sennosides 8.6 Mg Tablet) 17.2 mg PO BEDTIME [facility] Sodium Chloride (0.9 % Sodium Chloride Flush 3 Ml Syringe) 3 ml IVFLUSH QSHIFT [facility] Last Admin: 02/18/25 07:19 Dose: Not Given Documented By: BLAINE Non-Admin Reason: IV Running Trazodone HCl (Trazodone Hcl 100 Mg Tablet) 200 mg PO BEDTIME [facility] Last Admin: 02/18/25 02:44 Dose: 200 mg Documented By: ZULY Labs 02/17/25 13:57 02/17/25 13:57 Labs: Laboratory Results - last 24 hr 02/17/25 02/17/25 13:57 14:07 MCV 89.9 MCH 29.6 MCHC 32.9 RDW 14.2 Plt Count 158 L MPV 11.3 Immature Gran % (Auto) 0.3 Neut % (Auto) 83.6 H Lymph % (Auto) 10.8 L [place] % (Auto) 4.9 Eos % (Auto) 0.1 Baso % (Auto) 0.3 Lymph # (Auto) 1.3 [place] # (Auto) 0.6 Eos # (Auto) 0.0 Baso # (Auto) 0.0 Abs Immat Gran (auto) 0.04 H Absolute Neuts (auto) 9.7 H Absolute Nucleated RBC 0.000 Nucleated RBC % (auto) 0.0 Anion Gap 10 L Estim Creat Clear Calc 49.2 Estimated GFR > 60 Random Glucose 106 Calcium 9.5 Total Bilirubin 0.8 AST 24 ALT 7 Alkaline Phosphatase 102 Total Protein 6.1 L Albumin 3.9 Urine Color Yellow Urine Appearance Clear Urine pH 7.5 Ur Specific [place] <= 1.005 Urine Protein Negative Urine Glucose (UA) Negative Urine Ketones Trace Urine Blood Negative Urine Nitrite Negative Ur Leukocyte Esterase Negative Assessment and Plan (1) Constipation: Status: Acute Plan 79F PMH chronic back pain presented with abdominal pain found to have stool impaction Abdominal pain due to stool impaction GI appreciated, plan for Gastrografin enema, rule out colonic obstruction Suicide ideation 1:1 care team prior to discharge DVT prophylaxis-subcutaneous heparin Full code reason for continued hospitalization: Awaiting bowel movement Quality Stroke Does the patient have a stroke diagnosis?: No VTE Prior VTE?: No VTE Risk Level:: Medical - moderate - high VTE Device Contraindication: N/A - Device Ordered VTE Drug Contraindication: N/A - Med Ordered
[2025-02-18 09:33] LABS: Hemoglobin 12.4 g/dl (12.0-16.0); Mean Corpuscular HGB Conc 33.5 g/dl (31.0-35.0); Mean Corpuscular Hemoglobin 30.3 pg (27.0-33.0); Mean Corpuscular Volume 90.5 fL (80.0-98.0); Platelet Count 149 X10*3/uL (160-400); Red Blood Count 4.09 X10*6/uL (4.20-5.50); Red Cell Distribution Width 14.4 % (11.0-16.0); White Blood Count 10.8 X10*3/uL (4.8-10.8)
[2025-02-18 09:48] LABS: Alanine Aminotransferase 9 U/L (0-31); Albumin Level 3.7 g/dL (3.5-5.0); Alkaline Phosphatase 96 U/L (39-117); Anion Gap 7 (12-20); Aspartate Amino Transferase 25 U/L (5-31); Bilirubin Total 1.1 mg/dL (0.0-1.0); Blood Urea Nitrogen 10 mg/dL (9-16); Calcium 9.2 mg/dL (8.4-10.2); Carbon Dioxide 26 mmol/L (22-29); Chloride 112 mmol/L (96-108); Creatinine Clr Calc Pharmacy 46.3; Estimated Glomerular Filt Rate > 60; Glucose Random 110 mg/dL (60-115); Potassium 4.2 mmol/L (3.3-5.1); Sodium 141 mmol/L (135-145); Total Protein 5.8 g/dL (6.5-8.0)
[2025-02-18 10:03] VITALS: BP 136/65; PULSE 68; RESP 17; TEMP 36.6; O2SAT 100
[2025-02-18] MEDS: Acetaminophen 1,000 MG/100 ML PIGGYBACK 400 MG IV (10:40)
--- NOTE | 2025-02-18 10:45 | PC.NURSE ---
Addendum entered by Smita Martínez RN 02/18/25 12:28: Per Dr. Power, ok to hold off on enema as pt was able to move bowels. Addendum entered by Smita Martínez RN 02/18/25 12:22: 11:30- MD Champion returned to bedside, digitally disimpacted pt, small amount of stool removed. Pt was then able to ambulate to bathroom and had a large BM. At this time pt was able to void, had previously been retaining, post void residual 260ML. Dr. Power, Leandro, and Akira notified via tiger text. Original Note: MD Champion attempted rectal exam at bedside, at this time pt experiencing sever pain, IV tylenol given per 1x dose, Per Dr. Champion hold off on enema until he can come back to preform rectal exam, MD Power made aware.
--- NOTE | 2025-02-18 11:42 | PM.PROC ---
Brief Operative Note Date of procedure: 02/18/25 Pre-op diagnosis: Fecal impaction with constipation Post-op diagnosis: same Procedure: Procedure: Manual fecal disimpaction at bedside The patient was complaining of severe pain in the rectum because of fullness of stools. I did an initial digital rectal exam and there was note of large amount of thick, pasty hard stools within the rectal vault. I explained to her therefore that it would be best to disimpact her manually. She understood the technique of the planned procedure She was given IV Ofirmev for pain as she was very uncomfortable with the digital exam She was in leigh ann-knife position, lateral decubitus. I used my index finger and carefully and gently removed as much of the hard stools from the rectal vault. This had to be done multiple times. She felt much better her afterwards. She is to get some enemas today. I will evaluate tomorrow and possibly repeat the manual disimpaction. Anesthesia: none Surgeon: Van Champion Pathology: none sent Condition: stable
[2025-02-18 12:50] VITALS: BP 121/60
[2025-02-18] MEDS: 0.9 % Sodium Chloride Flush 3 ML SYRINGE IVFLUSH (15:04)
--- NOTE | 2025-02-18 15:29 | MHC.CM.PN ---
PT HAS A SITTER IS SLEEPING DEEPLY CALLED AND SPOKWE WITH SHIRLEY WHO EXPLINS THAT PT HAS MOW AND THAT SHE WILL HAVE TRANSPORTAION HOME WHEN DC DC PLAN TBD /sect 12
[2025-02-18 15:46] VITALS: BP 133/64; PULSE 69; RESP 15; TEMP 36.4; O2SAT 97
[2025-02-18] MEDS: Acetaminophen 325 MG TABLET 650 MG PO ×2 (17:39→19:37)
[2025-02-18 19:31] VITALS: BP 103/60; PULSE 60; RESP 16; TEMP 36.3; O2SAT 97
[2025-02-18] MEDS: Sennosides 8.6 MG TABLET 17.2 MG PO (20:06)
[2025-02-19] VITALS: RESP 16
[2025-02-19 03:57] VITALS: BP 122/57; PULSE 67; RESP 16; TEMP 37; O2SAT 98
[2025-02-19] MEDS: Heparin Sodium,Porcine 5,000 UNIT/ML VIAL 5000 UNIT SUBCUT (06:23)
[2025-02-19 06:38] LABS: Hemoglobin 11.5 g/dl (12.0-16.0); Mean Corpuscular HGB Conc 32.9 g/dl (31.0-35.0); Mean Corpuscular Volume 91.4 fL (80.0-98.0); Mean Platelet Volume 12.2 fL (9.4-12.3); Platelet Count 135 X10*3/uL (160-400); Red Blood Count 3.83 X10*6/uL (4.20-5.50); Red Cell Distribution Width 14.6 % (11.0-16.0); White Blood Count 11.8 X10*3/uL (4.8-10.8)
[2025-02-19 06:58] LABS: Anion Gap 7 (12-20); Blood Urea Nitrogen 8 mg/dL (9-16); Calcium 8.6 mg/dL (8.4-10.2); Carbon Dioxide 24 mmol/L (22-29); Chloride 113 mmol/L (96-108); Creatinine Clr Calc Pharmacy 53.3; Estimated Glomerular Filt Rate > 60; Glucose Random 114 mg/dL (60-115); Potassium 3.9 mmol/L (3.3-5.1); Sodium 140 mmol/L (135-145)
[2025-02-19 07:12] VITALS: BP 114/57; PULSE 77; RESP 18; TEMP 36.1; O2SAT 97
--- NOTE | 2025-02-19 08:59 | P.DS_ITS ---
DS: Providers Provider Date of Service: 02/19/25 Date of admission: 02/17/25 22:55 Date of discharge: 02/19/25 Primary care physician: Aniceto Umana MD Consults: 02/17/25 16:56 ED CARE Team Crisis Consult Stat Comment: Reason for consultation: Patient is now suicidal and is emotion labile 02/17/25 22:57 Consult to Psychiatry Routine Consulting Provider: [facility] Psych Covering Reason for consultation: SI 02/17/25 23:17 Consult to Gastroenterology Routine Consulting Provider: Daniele Reeves Reason for consultation: colonic obstruction Consult to General Surgery Routine Consulting Provider: [facility] General Surgeons Reason for consultation: colonic obstruction DS: Diagnosis Discharge Diagnosis (1) Fecal impaction: Status: Acute (2) Constipation: Status: Acute DS: Summary Hospital Course Hospital Course: from initial hpi: 79-year-old female with a past medical history of chronic back pain status post surgery presented to the hospital today with a chief complaint of abdominal discomfort/constipation. Patient reports that she is having difficulty in having a bowel movement since morning. Has been having mild lower abdominal discomfort. Denies any nausea or vomiting. Last bowel movement was about a day ago. Denies any chest pain or palpitations. Denies any urinary frequency urgency or dysuria. Review of all other systems is negative except mentioned above ER course: Per ER team, patient abdominal exam was benign; CT abdomen pelvis showed severe constipation with colonic obstruction. ER patient tried manual disimpaction couple times but no success. Patient was given enema 2 times. Discussed with General surgery and Gastroenterology who suggested admission to the medicine service and will be evaluated in the morning. hospital course: Patient was admitted for abdominal pain due to stool impaction. Was treated with laxatives and multiple enemas and disimpaction. Eventually successful and had large bowel movement with significant relief of symptoms. Impaction likely triggered by opiate use which should be weaned as outpatient. We will continue on bowel regimen on discharge. During hospitalization there was a report of suicide ideation. This was discussed with patient who states she has no suicidal ideation and or any thoughts of self-harm. She states this report is based on old information from September of 2024. Will be discharged home and should follow up if needed with outpatient psychiatry. Time Attestation Discharge Coordination Time (in mins): 35 Quality: Safe Use of Opioids Does Pt have an Active Cancer Diagnosis on the Problem List?: No Quality: Stroke Does the patient have a stroke diagnosis?: No Physical Exam Vital Signs: Vital Signs: Last Vital Signs Temp 97.0 F 02/19/25 07:12 Pulse 77 02/19/25 07:12 Resp 18 02/19/25 07:12 BP 114/57 L 02/19/25 07:12 Pulse Ox 97 02/19/25 07:12 O2 Del Method Room Air 02/19/25 07:12 BMI result Body Mass Index 26.4 General: AO X 3, no acute distress Resp: CTA bilateral, no accessory muscles used CVS: S1,S2,RRR GI: soft, non tender, non distended Neuro: motor grossly intact, alert Psych: appropriate affect, appropriate insight DS: Data Data Completed and Pending Labs on day of discharge: Laboratory Results - last 24 hr 02/18/25 02/19/25 08:58 05:47 WBC 10.8 11.8 H RBC 4.09 L 3.83 L Hgb 12.4 11.5 L Hct 37.0 35.0 L MCV 90.5 91.4 MCH 30.3 30.0 MCHC 33.5 32.9 RDW 14.4 14.6 Plt Count 149 L 135 L MPV 12.0 12.2 Absolute Nucleated RBC 0.000 0.000 Nucleated RBC % (auto) 0.0 0.0 Sodium 141 140 Potassium 4.2 3.9 Chloride 112 H 113 H Carbon Dioxide 26 24 Anion Gap 7 L 7 L BUN 10 8 L Creatinine 0.84 0.73 Estim Creat Clear Calc 46.3 53.3 Estimated GFR > 60 > 60 Random Glucose 110 114 Calcium 9.2 8.6 D Total Bilirubin 1.1 H AST 25 ALT 9 Alkaline Phosphatase 96 Total Protein 5.8 L Albumin 3.7 Discharge Plan Discharge Anticipated Discharge Date/Time: 02/19/25 08:57 Patient Disposition: Home, Self-Care Discharge Diagnosis: Fecal impaction Referrals: Aniceto Umana MD [Primary Care Provider] - 1 Week Discharge Medications: New psyllium Packet 1 packet PO QAM Qty: 90 0RF Rx Instructions: mix into at least 8 oz of water or juice before administering Continued trazodone 100 mg tablet 200 mg PO BEDTIME oxycodone 10 mg tablet 10 mg PO BID Rx Instructions: TAKE 1 TABLET BY MOUTH IN THE MORNING, 1 TABLET AT 12PM AND 1 TABLET IN THE EVENING oxycodone 10 mg tablet 10 mg PO DAILY PRN (Reason: Pain) Discharge Orders: Discharge Order (Routine); Ordered 02/19/25 Ordered By: Michael Power Diet: Advance to usual diet Activity on Discharge: As tolerated Stand Alone Forms: Patient Portal Discharge page Print Language: Tajik Care Plan Goals: Prevent impaction/constipation Health Concerns: Fecal impaction Plan of Treatment: Try to wean off opiates, continue bowel regimen Assessment: See above
--- NOTE | 2025-02-19 09:11 | P.PNGS_ITS ---
Subjective Subjective Date of Service: 02/19/25 Interval history: Has been passing amounts of stool after manual disimpaction yesterday Feels much better Rectal pain has resolved She says she is ready to be discharged Physical Exam 2 Vital Signs: Vital Signs: Last Vital Signs Temp 97.0 F 02/19/25 07:12 Pulse 77 02/19/25 07:12 Resp 18 02/19/25 07:12 BP 114/57 L 02/19/25 07:12 Pulse Ox 97 02/19/25 07:12 O2 Del Method Room Air 02/19/25 07:12 BMI result Body Mass Index 26.4 Const: Other: Looks well General: comfortable and no acute distress Resp: Effort & Inspection: normal respiratory effort Cardio: Rate: regular rate GI: Palpation (GI): Soft to palpation, not firm and nontender Objective Data Active Medications Acetaminophen (Acetaminophen 325 Mg Tablet) 650 mg PO Q6H PRN PRN Reason: Pain, Mild 1-3,fever,headache Last Admin: 02/18/25 17:39 Dose: 650 mg Documented By: LAURYN Calcium Carbonate (Calcium Carbonate 750 Mg Tab.Chew) 750 mg PO Q4H PRN PRN Reason: Heartburn Docusate Sodium (Docusate Sodium 100 Mg Capsule) 100 mg PO BID [facility] [place] Last Admin: 02/19/25 09:00 Dose: Not Given Documented By: JOCE Non-Admin Reason: Loose stoolsMD approved Heparin Sodium (Porcine) (Heparin Sodium,Porcine 5,000 Unit/Ml Vial) 5,000 unit SUBCUT Q8H [facility] [place] Last Admin: 02/19/25 06:23 Dose: 5,000 unit Documented By: NAVA Dextrose/Sodium Chloride (D51/2ns) 1,000 mls @ 100 mls/hr IVCONT .Q10H [facility] [place] Last Admin: 02/19/25 06:10 Dose: Not Given Documented By: NAVA Non-Admin Reason: IV Running Magnesium Hydroxide (Milk Of Magnesia 30 Ml Oral.Susp) 30 ml PO DAILY PRN PRN Reason: Constipation Melatonin (Melatonin 3 Mg Tablet) 6 mg PO BEDTIME PRN PRN Reason: Insomnia Mineral Oil (Mineral Oil Enema 133 Ml Enema) 133 ml IA Q1H PRN PRN Reason: constipation Polyethylene Glycol (Polyethylene Glycol 3350 17 Gm Powd.Pack) 17 gm PO DAILY PRN PRN Reason: Constipation Senna (Sennosides 8.6 Mg Tablet) 17.2 mg PO BEDTIME [facility] [place] Last Admin: 02/18/25 20:06 Dose: 17.2 mg Documented By: NAVA Sodium Chloride (0.9 % Sodium Chloride Flush 3 Ml Syringe) 3 ml IVFLUSH QSHIFT [facility] [place] [place] Last Admin: 02/19/25 07:10 Dose: Not Given Documented By: JOCE Non-Admin Reason: IV Running Trazodone HCl (Trazodone Hcl 100 Mg Tablet) 200 mg PO BEDTIME [facility] [place] Last Admin: 02/18/25 20:06 Dose: 200 mg Documented By: NAVA Labs 02/19/25 05:47 02/19/25 05:47 Labs: Laboratory Results - last 24 hr 02/18/25 02/19/25 08:58 05:47 MCV 90.5 91.4 MCH 30.3 30.0 MCHC 33.5 32.9 RDW 14.4 14.6 Plt Count 149 L 135 L MPV 12.0 12.2 Absolute Nucleated RBC 0.000 0.000 Nucleated RBC % (auto) 0.0 0.0 Anion Gap 7 L 7 L Estim Creat Clear Calc 46.3 53.3 Estimated GFR > 60 > 60 Random Glucose 110 114 Calcium 9.2 8.6 D Total Bilirubin 1.1 H AST 25 ALT 9 Alkaline Phosphatase 96 Total Protein 5.8 L Albumin 3.7 Procedures Date of Service Date of Service: 02/19/25 Progress Note: A&P Assessment and plan (1) Fecal impaction: Status: Acute Assessment and Plan: Status post disimpaction yesterday With good results She is on chronic narcotic so she should be on a regimen of softeners - Colace +Metamucil She says that she is not suicidal She wants to be discharged Time Spent With Patient Time: Total time managing care of this patient today ____ minutes. Quality Stroke Does the patient have a stroke diagnosis?: No VTE Prior VTE?: No VTE Risk Level:: Medical - moderate - high VTE Device Contraindication: N/A - Device Ordered VTE Drug Contraindication: N/A - Med Ordered
--- NOTE | 2025-02-19 09:25 | MHC.CM.PN ---
IMM 02/18/25 Patient is discharged to home. She has been cleared by MD to discharge home self care today. MOW will resume. Patient has arranged for transportation home.
== END 2025-02-19 10:11 | disposition home or self-care (01) | DRG 389 ==
LOC: HO.ED 13:22 → HO.EDOVER 23:17 → HO.S3 02-18 08:01
PROVIDERS: Physician Assistant; Admitting Provider Hospitalist; Emergency Provider Emergency Medicine; PCP Internal Medicine; Visit Provider Internal Medicine
DX: K56.41 Fecal impaction (principal); R45.851 Suicidal ideations; T40.2X5A Adverse effect of other opioids, initial encounter; M54.9 Dorsalgia, unspecified; G89.29 Other chronic pain; Z79.899 Other long term (current) drug therapy
CPT/HCPCS: 36415; 74018; 74177; 80048; 80053; 81003; 85025; 85027; 99285; J0131; J1644; J1885; Q9967

== ENCOUNTER → 2025-02-17 13:04 | Outpatient (BNV) | payer MEDICARE, SELFPAY | PROVIDERS: Emergency Provider Emergency Medicine; PCP Internal Medicine; Visit Provider Radiology Diagnostic Radiology | DX: K59.00 Constipation, unspecified (principal) | CPT/HCPCS: 74018; 74177 ==

== ENCOUNTER 2025-02-17 22:55 | Outpatient (BNV) | payer MEDICARE, SELFPAY | END 2025-02-18 09:10 | PROVIDERS: Admitting Provider Hospitalist; Emergency Provider Emergency Medicine; PCP Internal Medicine; Visit Provider Radiology Diagnostic Radiology | DX: D64.9 Anemia, unspecified (principal) | CPT/HCPCS: 74018 ==

== ENCOUNTER → 2025-02-17 22:55 | Outpatient (BNV) | payer MEDICARE, SELFPAY | PROVIDERS: Admitting Provider Hospitalist; Emergency Provider Emergency Medicine; PCP Internal Medicine; Visit Provider Internal Medicine Gastroenterology | DX: K56.41 Fecal impaction (principal) | CPT/HCPCS: 99222 ==

== ENCOUNTER → 2025-02-17 22:55 | Outpatient (BNV) | payer MEDICARE, SELFPAY | PROVIDERS: Admitting Provider Hospitalist; Emergency Provider Emergency Medicine; PCP Internal Medicine; Visit Provider Surgery | DX: K56.41 Fecal impaction (principal) | CPT/HCPCS: 99232 ==

== ENCOUNTER → 2025-02-17 22:55 | Outpatient (BNV) | payer MEDICARE, SELFPAY | PROVIDERS: Admitting Provider Hospitalist; Emergency Provider Emergency Medicine; PCP Internal Medicine; Visit Provider Internal Medicine | DX: K59.00 Constipation, unspecified (principal) | CPT/HCPCS: 99232 ==